=== PATIENT | male | born 1985 | race Caucasian/White ===

== ENCOUNTER 2023-04-23 19:11 | Emergency (ER) | payer OTHER ==
[2023-04-23] MEDS ORDERED: Sodium Chloride 0.9% 10 ML Syringe FLUSH PRN (19:50)
[2023-04-23] MEDS ORDERED: Pantoprazole 40 MG Vial IVPUSH ONE ×2 (20:00→20:15)
[2023-04-23] MEDS ORDERED: Prochlorperazine 10 MG/2 ML SDV IVPUSH ONE (20:03)
[2023-04-23 20:11] LABS: BASOPHILS ABSOLUTE AUTO 0.1 K/mm3 (0.0-0.2); BASOPHILS PERCENT AUTO 0.9 % (0.0-1.0); EOSINOPHILS PERCENT AUTO 0.3 % (0.0-6.0); HEMOGLOBIN 11.7 gm/dl (14.0-18.0); IMMATURE GRAN ABSOLUTE AUTO 0.04 K/mm3 (0.00-0.05); IMMATURE GRAN PERCENT AUTO 0.4 % (0.0-0.4); LYMPHOCYTES ABSOLUTE AUTO 3.7 K/mm3 (1.0-4.8); MEAN CORPUSCULAR HEMOGLOBIN 32.3 pg (28.0-32.0); MEAN CORPUSCULAR HGB CONC 35.5 g/dl (32.0-36.0); MEAN CORPUSCULAR VOLUME 91.2 fl (83.0-99.0); MONOCYTES ABSOLUTE AUTO 0.7 K/mm3 (0.0-0.8); MONOCYTES PERCENT AUTO 6.6 % (0.0-8.0); NEUTROPHILS ABSOLUTE AUTO 6.7 K/mm3 (1.8-7.7); NEUTROPHILS PERCENT AUTO 58.8 % (41.0-71.0); PLATELET COUNT,PLT 119 K/mm3 (150-400); RED BLOOD CELL COUNT 3.62 M/mm3 (4.52-5.90); WHITE BLOOD CELL COUNT,WBC 11.29 K/mm3 (3.9-11.3)
[2023-04-23] MEDS ORDERED: Pantoprazole 80 MG in Sodium Chloride 0.9% 100 ML IV SCH (20:15)
[2023-04-23 20:21] LABS: A/G RATIO 1.2 (1-2); ALBUMIN 3.6 g/dl (3.4-5.0); ANION GAP 22.1 (5-15); BILIRUBIN TOTAL 2.7 mg/dL (0.2-1.0); CALCIUM 8.4 mg/dL (8.5-10.1); EST CRCL DRUG DOSING (CG) 103.82 mL/min; POTASSIUM,K 3.1 mEq/L (3.5-5.1); PROTEIN TOTAL,TP 6.5 g/dl (6.4-8.2)
[2023-04-23] MEDS ORDERED: Octreotide 500 MCG in Normal Saline 500 ML IV SCH (20:30)
[2023-04-23] MEDS ORDERED: Octreotide 100 MCG/ML SDV IVPUSH ONE (20:30)
[2023-04-23 20:37] LABS: INR 1.54
[2023-04-23] MEDS ORDERED: Lactated Ringers 1,000 ML IV ONE (20:50)
[2023-04-23] MEDS ORDERED: cefTRIAXone 1 GM Vial IM ONE (21:10)
[2023-04-23] MEDS ORDERED: Sodium Chloride 0.9% 1,000 ML IV SCH (21:45)
[2023-04-23] MEDS ORDERED: Metoclopramide 10 MG/2 ML SDV IVPUSH ONE (22:18)
[2023-04-23] MEDS ORDERED: Sodium Chloride 0.9% 100 ML ONE (22:21)
== END 2023-04-23 23:31 ==
LOC: JD.ED 19:11
DX: K92.2 Gastrointestinal hemorrhage, unspecified (principal); Z87.19 Personal history of other diseases of the digestive system
CPT/HCPCS: 36415; 80053; 85025; 85610; 86850; 86900; 86901; 93005; 96365; 96366; 96368; 96372; 96375; 96376; 99285; C9113; J0696; J0780; J2354; J2765; J3490; J7040; J7120; 93010; 99284

== ENCOUNTER 2024-01-03 08:03 | Inpatient (IN) | payer BC, MEDICAID, OTHER ==
[2024-01-03] MEDS: Sodium Chloride 0.9% 1,000 ML IV ONE (08:45)
[2024-01-03] MEDS: Sodium Chloride 0.9% 10 ML Syringe FLUSH PRN (08:50)
[2024-01-03] MEDS: LORazepam 2 MG/ML SDV IVPUSH ONE (08:50)
[2024-01-03 09:22] LABS: INR 1.83; PROTHROMBIN TIME 18.6 SECONDS (9.7-12.0)
[2024-01-03 09:24] LABS: PTT,PARTIAL THROMBOPLSTIN TIME 29.2 SECONDS (21.7-31.4)
[2024-01-03 09:27] LABS: LACTIC ACID 0.9 mmol/L (0.4-2.0)
[2024-01-03 09:28] LABS: BASOPHILS ABSOLUTE AUTO 0.1 K/mm3 (0.0-0.2); EOSINOPHILS ABSOLUTE AUTO 0.2 K/mm3 (0.0-0.4); EOSINOPHILS PERCENT AUTO 3.6 % (0.0-6.0); HEMATOCRIT 22.4 % (42.0-52.0); IMMATURE GRAN ABSOLUTE AUTO 0.01 K/mm3 (0.00-0.05); IMMATURE GRAN PERCENT AUTO 0.2 % (0.0-0.4); LYMPHOCYTES ABSOLUTE AUTO 1.1 K/mm3 (1.0-4.8); LYMPHOCYTES PERCENT AUTO 21.4 % (24.0-44.0); MEAN CORPUSCULAR HGB CONC 31.7 g/dl (32.0-36.0); MEAN CORPUSCULAR VOLUME 78.9 fl (83.0-99.0); MONOCYTES ABSOLUTE AUTO 0.5 K/mm3 (0.0-0.8); MONOCYTES PERCENT AUTO 10.9 % (0.0-8.0); NEUTROPHILS ABSOLUTE AUTO 3.1 K/mm3 (1.8-7.7); NEUTROPHILS PERCENT AUTO 62.9 % (41.0-71.0); PLATELET COUNT,PLT 90 K/mm3 (150-400); RED BLOOD CELL COUNT 2.84 M/mm3 (4.52-5.90); WHITE BLOOD CELL COUNT,WBC 4.95 K/mm3 (3.9-11.3)
[2024-01-03 09:32] LABS: HEMOGLOBIN 7.1 gm/dl (14.0-18.0)
[2024-01-03 09:34] LABS: A/G RATIO 0.8 (1-2); ALBUMIN 2.5 g/dl (3.4-5.0); ANION GAP 13.7 (5-15); BILIRUBIN TOTAL 12.3 mg/dL (0.2-1.0); BUN/CREATININE RATIO 6.3 (14-18); CALCIUM 7.5 mg/dL (8.5-10.1); EST CRCL DRUG DOSING (CG) 114.06 mL/min; MAGNESIUM 1.7 mg/dL (1.8-2.4)
[2024-01-03 09:40] LABS: CREATININE 0.8 mg/dL (0.7-1.3); POTASSIUM,K 3.7 mEq/L (3.5-5.1); PROTEIN TOTAL,TP 5.8 g/dl (6.4-8.2)
[2024-01-03 10:10] LABS: SLIDE REVIEW ABNORMAL SMEAR
[2024-01-03] MEDS: Magnesium Sulfate/Water 2 GM in Premix Bag 1 BAG IV ONE (13:25)
[2024-01-03] MEDS: prednisoLONE Soln 15 MG/5 ML UD Cup PO ONE (13:25)
[2024-01-03 15:39] LABS: BILIRUBIN DIRECT 9.1 mg/dl (0.0-0.2)
[2024-01-03] MEDS: Magnesium Sulfate (4 meq/ML) 10 GM/20 ML SDV IV ONE (15:44)
[2024-01-03] MEDS: Potassium Chloride 20 MEQ Tab.ER PO ONE (15:44)
[2024-01-03] MEDS: oxyCODONE 5 MG Tab PO PRN (15:48)
[2024-01-03] MEDS ORDERED: Propranolol 10 MG Tab PO PRN (16:01)
[2024-01-03] MEDS ORDERED: Morphine 2 MG/ML SYRINGE IVPUSH PRN (16:07)
[2024-01-03] MEDS ORDERED: Sennosides/Docusate Sodium 50-8.6 MG Tab PO PRN (16:07)
[2024-01-03] MEDS ORDERED: Lidocaine 4% 1 each Patch TOP PRN (16:07)
[2024-01-03] MEDS ORDERED: Remove Patch LIDODERM TRDERM PRN (16:20)
[2024-01-03] MEDS: Lactulose Soln 10 GM/15 ML 30 ML UD Cup PO SCH (16:46)
[2024-01-03] MEDS: Lactated Ringers 1,000 ML IV SCH (16:46)
[2024-01-03 17:09] LABS: APPEARANCE,URINE CLEAR (Clear); BILIRUBIN,URINE 2+ (Negative); COLOR,URINE DARK YELLOW (Yellow); GLUCOSE,URINE NEGATIVE (Negative); KETONES,URINE NEGATIVE (Negative); LEUKOCYTE ESTERASE,URINE NEGATIVE (Negative); NITRITE,URINE NEGATIVE (Negative); OCCULT BLOOD,URINE NEGATIVE (Negative); PH,URINE 6.5 (5.0-8.0); PROTEIN,URINE NEGATIVE (Negative); UROBILINOGEN,URINE 0.2 (0.2-1.0)
[2024-01-03 17:16] LABS: BARBITURATE SCREEN,URINE NEGATIVE (CUTOFF=200); BENZODIAZEPINES SCREEN,URINE NEGATIVE (CUTOFF=150); BUPRENORPHINE SCREEN,URINE NEGATIVE (CUTOFF=10); METHADONE SCREEN, URINE NEGATIVE (CUT0FF=200); METHAMPHETAMINES SCREEN, URINE NEGATIVE (CUTOFF=500); OXYCODONE SCREEN,URINE NEGATIVE (CUT0FF=100); THC SCREEN,URINE 20 NG/ML NEGATIVE (CUTOFF=50)
[2024-01-03 17:28] LABS: AMPHETAMINES SCREEN, URINE NEGATIVE (CUTOFF=500)
[2024-01-03 17:30] LABS: HEPATITIS C AB NON-REACTIVE (Non-React)
[2024-01-03] MEDS: Sodium Ferric Gluconate Cmplex 125 MG in Sodium Chloride 0.9% 100 ML IV SCH (19:21)
[2024-01-03] MEDS: Propranolol 20 MG Tab PO SCH (20:49)
[2024-01-03] MEDS: Pantoprazole 40 MG Tab.CR PO SCH (20:49)
[2024-01-03] MEDS: LORazepam 2 MG/ML SDV IVPUSH PRN (23:05)
[2024-01-04 05:27] LABS: INR 1.78; PROTHROMBIN TIME 18.2 SECONDS (9.7-12.0)
[2024-01-04 05:39] LABS: A/G RATIO 0.7 (1-2); ALBUMIN 2.3 g/dl (3.4-5.0); BILIRUBIN TOTAL 11.8 mg/dL (0.2-1.0); BUN/CREATININE RATIO 7.1 (14-18); CALCIUM 7.8 mg/dL (8.5-10.1); EST CRCL DRUG DOSING (CG) 138.43 mL/min; PHOSPHORUS 2.5 mg/dL (2.6-4.7)
[2024-01-04 05:40] LABS: PROTEIN TOTAL,TP 5.6 g/dl (6.4-8.2)
[2024-01-04 05:41] LABS: BASOPHILS PERCENT AUTO 0.1 % (0.0-1.0); CREATININE 0.7 mg/dL (0.7-1.3); HEMATOCRIT 22.6 % (42.0-52.0); IMMATURE GRAN ABSOLUTE AUTO 0.04 K/mm3 (0.00-0.05); IMMATURE GRAN PERCENT AUTO 0.5 % (0.0-0.4); LYMPHOCYTES ABSOLUTE AUTO 0.9 K/mm3 (1.0-4.8); MEAN CORPUSCULAR HEMOGLOBIN 25.6 pg (28.0-32.0); MEAN CORPUSCULAR HGB CONC 32.3 g/dl (32.0-36.0); MEAN CORPUSCULAR VOLUME 79.3 fl (83.0-99.0); MONOCYTES ABSOLUTE AUTO 0.4 K/mm3 (0.0-0.8); MONOCYTES PERCENT AUTO 4.7 % (0.0-8.0); NEUTROPHILS ABSOLUTE AUTO 7.2 K/mm3 (1.8-7.7); NEUTROPHILS PERCENT AUTO 84.7 % (41.0-71.0); PLATELET COUNT,PLT 91 K/mm3 (150-400); RED BLOOD CELL COUNT 2.85 M/mm3 (4.52-5.90); WHITE BLOOD CELL COUNT,WBC 8.52 K/mm3 (3.9-11.3)
[2024-01-04 06:32] LABS: HEMOGLOBIN 7.3 gm/dl (14.0-18.0)
[2024-01-04 06:35] LABS: SLIDE REVIEW ABNORMAL SMEAR
[2024-01-04] MEDS: Sodium Ferric Gluconate Cmplex 125 MG in Sodium Chloride 0.9% 100 ML IV SCH (08:00)
[2024-01-04] MEDS: Enoxaparin 40 MG/0.4 ML Syringe SUBCUT SCH (08:00)
[2024-01-04] MEDS ORDERED: Ferrous Sulfate 324 MG Tab.EC PO SCH (09:00)
[2024-01-04] MEDS: Ondansetron 4 MG/2 ML SDV IV PRN (10:23)
[2024-01-04] MEDS: LORazepam 2 MG/ML SDV IVPUSH PRN (12:13)
[2024-01-04] MEDS: Sodium Chloride 0.9% 500 ML ONE (12:42)
[2024-01-04] MEDS: Sodium Chloride 0.9% 500 ML IV ONE (12:43)
[2024-01-04] MEDS: Sodium Chloride 0.9% 1,000 ML IV SCH (15:12)
[2024-01-04] MEDS: Ibuprofen 400 MG Tab PO PRN (20:42)
[2024-01-04] MEDS: Melatonin 3 MG Tab PO PRN (20:42)
[2024-01-04] MEDS: Atropine 0.1 MG/ML 10 ML Syringe IVPUSH ONE (20:45)
[2024-01-04] MEDS: Pantoprazole 40 MG Vial IVPUSH SCH (21:06)
[2024-01-05 05:37] LABS: HEMATOCRIT 21.7 % (42.0-52.0); MEAN CORPUSCULAR HEMOGLOBIN 25.5 pg (28.0-32.0); MEAN CORPUSCULAR HGB CONC 31.3 g/dl (32.0-36.0); MEAN CORPUSCULAR VOLUME 81.3 fl (83.0-99.0); PLATELET COUNT,PLT 73 K/mm3 (150-400); RED BLOOD CELL COUNT 2.67 M/mm3 (4.52-5.90); WHITE BLOOD CELL COUNT,WBC 4.23 K/mm3 (3.9-11.3)
[2024-01-05 05:40] LABS: HEMOGLOBIN 6.8 gm/dl (14.0-18.0)
[2024-01-05 05:46] LABS: A/G RATIO 0.7 (1-2); ALBUMIN 1.9 g/dl (3.4-5.0); ANION GAP 14.6 (5-15); BILIRUBIN TOTAL 8.9 mg/dL (0.2-1.0); BUN/CREATININE RATIO 4.4 (14-18); CALCIUM 7.2 mg/dL (8.5-10.1); CREATININE 0.9 mg/dL (0.7-1.3); EST CRCL DRUG DOSING (CG) 103.45 mL/min; MAGNESIUM 1.8 mg/dL (1.8-2.4); PHOSPHORUS 3.5 mg/dL (2.6-4.7); POTASSIUM,K 3.6 mEq/L (3.5-5.1); TSH 2.13 uIU/mL (0.358-3.74)
[2024-01-05 05:52] LABS: PROTEIN TOTAL,TP 4.8 g/dl (6.4-8.2)
[2024-01-05] MEDS: Magnesium Sulfate/Water 2 GM in Premix Bag 1 BAG IV ONE (06:51)
[2024-01-05] MEDS: Potassium Chloride 20 MEQ Tab.ER PO ONE (06:51)
[2024-01-05] MEDS ORDERED: Magnesium Sulfate (4.06 MEQ/ML) 5 GM/10 ML SDV IV ONE (07:30)
[2024-01-05] MEDS: LORazepam 2 MG/ML SDV IVPUSH PRN (10:22)
[2024-01-05] MEDS: Magnesium Sulfate/Water 4 GM in Premix Bag 1 BAG IV ONE (13:50)
[2024-01-05] MEDS: Folic Acid 1 MG Tab PO SCH (13:54)
[2024-01-05] MEDS: Cyanocobalamin (Vitamin B12) 1,000 MCG Tab PO SCH (13:54)
[2024-01-05] MEDS: Pantoprazole 40 MG Tab.CR PO SCH (15:33)
[2024-01-05 17:02] LABS: HEMATOCRIT 25.8 % (42.0-52.0); HEMOGLOBIN 8.1 gm/dl (14.0-18.0); MEAN CORPUSCULAR HEMOGLOBIN 25.5 pg (28.0-32.0); MEAN CORPUSCULAR HGB CONC 31.4 g/dl (32.0-36.0); MEAN CORPUSCULAR VOLUME 81.1 fl (83.0-99.0); PLATELET COUNT,PLT 82 K/mm3 (150-400); RED BLOOD CELL COUNT 3.18 M/mm3 (4.52-5.90); WHITE BLOOD CELL COUNT,WBC 5.08 K/mm3 (3.9-11.3)
[2024-01-05] MEDS: Thiamine 100 MG Tab PO SCH (20:57)
[2024-01-06 05:38] LABS: HEMATOCRIT 24.2 % (42.0-52.0); HEMOGLOBIN 7.8 gm/dl (14.0-18.0); MEAN CORPUSCULAR HEMOGLOBIN 25.7 pg (28.0-32.0); MEAN CORPUSCULAR HGB CONC 32.2 g/dl (32.0-36.0); MEAN CORPUSCULAR VOLUME 79.6 fl (83.0-99.0); NRBC ABSOLUTE 0.02 (0.00-0.02); NRBC PERCENT 0.4 % (0.0-0.2); PLATELET COUNT,PLT 80 K/mm3 (150-400); RED BLOOD CELL COUNT 3.04 M/mm3 (4.52-5.90); WHITE BLOOD CELL COUNT,WBC 4.72 K/mm3 (3.9-11.3)
[2024-01-06 05:44] LABS: A/G RATIO 0.7 (1-2); ALBUMIN 2.1 g/dl (3.4-5.0); ANION GAP 14.8 (5-15); BUN/CREATININE RATIO 6.3 (14-18); CALCIUM 7.5 mg/dL (8.5-10.1); EST CRCL DRUG DOSING (CG) 121.13 mL/min; MAGNESIUM 1.9 mg/dL (1.8-2.4)
[2024-01-06 06:14] LABS: CREATININE 0.8 mg/dL (0.7-1.3); POTASSIUM,K 3.8 mEq/L (3.5-5.1)
[2024-01-06 14:42] LABS: CMV QNT BY NAAT, INTERP,PL Not Detected (Not Detected); CMV QNT BY NAAT, IU/ML,PL Not Detected; CMV QNT BY NAAT, LOGIU/ML,PL Not Detected log IU/mL
[2024-01-06] MEDS ORDERED: LORazepam 2 MG/ML SDV IVPUSH PRN (16:55)
[2024-01-06] MEDS: Magnesium Sulfate/Water 2 GM in Premix Bag 1 BAG IV ONE (21:32)
[2024-01-06 22:41] LABS: MITOCHONDRIAL AB 3.9 Units (0.0-24.9)
[2024-01-07] MEDS: Potassium Chloride 20 MEQ Tab.ER PO ONE ×2 (02:05→02:06)
[2024-01-07 05:31] LABS: HEMATOCRIT 25.1 % (42.0-52.0); HEMOGLOBIN 8.1 gm/dl (14.0-18.0); MEAN CORPUSCULAR HEMOGLOBIN 26.2 pg (28.0-32.0); MEAN CORPUSCULAR HGB CONC 32.3 g/dl (32.0-36.0); MEAN CORPUSCULAR VOLUME 81.2 fl (83.0-99.0); NRBC ABSOLUTE 0.02 (0.00-0.02); NRBC PERCENT 0.4 % (0.0-0.2); PLATELET COUNT,PLT 90 K/mm3 (150-400); RED BLOOD CELL COUNT 3.09 M/mm3 (4.52-5.90); WHITE BLOOD CELL COUNT,WBC 5.39 K/mm3 (3.9-11.3)
[2024-01-07 05:44] LABS: A/G RATIO 0.7 (1-2); ALBUMIN 2.1 g/dl (3.4-5.0); BUN/CREATININE RATIO 6.7 (14-18); EST CRCL DRUG DOSING (CG) 107.67 mL/min; MAGNESIUM 1.8 mg/dL (1.8-2.4); PHOSPHORUS 3.5 mg/dL (2.6-4.7)
[2024-01-07 05:49] LABS: CREATININE 0.9 mg/dL (0.7-1.3)
[2024-01-07 14:43] LABS: EBV QNT BY NAAT,INTERP,PLASMA Not Detected (Not Detected); EBV QNT BY NAAT,IU/ML,PLASMA Not Detected; EBV QNT BY NAAT,LOG,IU/ML,PLAS Not Detected log IU/mL
== END 2024-01-07 14:30 | disposition home or self-care (01) | DRG 442 ==
LOC: JD.ED 08:03 → JD.MS 09:59 → JD.ICU 01-04 09:54 → EDBD 01-04 09:59 → OBSVTOIN 01-04 09:59 → JD.MS 01-07 12:10 → JD.ICU 01-07 12:11
PROVIDERS: ADMIT Student in an Organized Health Care Education/Training Program; ATTEND Student in an Organized Health Care Education/Training Program
DX: K72.00 Acute and subacute hepatic failure without coma (principal); F10.139 Alcohol abuse with withdrawal, unspecified; S22.41XA Multiple fractures of ribs, right side, initial encounter for closed fracture; D50.9 Iron deficiency anemia, unspecified; F41.9 Anxiety disorder, unspecified; K72.10 Chronic hepatic failure without coma; F17.210 Nicotine dependence, cigarettes, uncomplicated; E80.6 Other disorders of bilirubin metabolism; K76.0 Fatty (change of) liver, not elsewhere classified; K80.20 Calculus of gallbladder without cholecystitis without obstruction; K22.70 Barrett's esophagus without dysplasia; X58.XXXA Exposure to other specified factors, initial encounter; Y92.89 Other specified places as the place of occurrence of the external cause
CPT/HCPCS: 36415; 36430; 51798; 71101-26-RT; 71101-RT; 76705; 76705-26; 80053; 80306; 80307; 81003; 82140; 82248; 82272; 83540; 83605; 83690; 83735; 84100; 84443; 84466; 85025; 85027; 85610; 85730; 86381; 86803; 86850; 86900; 86901; 86922; 87497; 87799; 93005; 94760; 96361; 96365; 96366; 96367; 96372; 96375; 96376; 99285-25; A9270-GY; C1758; G0378; J1650; J2060; J2405; J2470; J2916; J3360; J3475; J3490; J7030; J7040; J7120; P9016

== ENCOUNTER 2024-03-05 12:45 | Emergency (ER) | payer MEDICAID ==
[2024-03-05] MEDS: Sodium Chloride 0.9% 1,000 ML IV ONE (13:08)
[2024-03-05] MEDS: Metoclopramide 10 MG/2 ML SDV IVPUSH ONE (13:08)
[2024-03-05 13:31] LABS: BASOPHILS PERCENT AUTO 0.7 % (0.0-1.0); EOSINOPHILS PERCENT AUTO 0.7 % (0.0-6.0); HEMATOCRIT 33.2 % (42.0-52.0); HEMOGLOBIN 11.3 gm/dl (14.0-18.0); IMMATURE GRAN ABSOLUTE AUTO 0.03 K/mm3 (0.00-0.05); IMMATURE GRAN PERCENT AUTO 0.5 % (0.0-0.4); LYMPHOCYTES ABSOLUTE AUTO 1.3 K/mm3 (1.0-4.8); LYMPHOCYTES PERCENT AUTO 22.9 % (24.0-44.0); MEAN CORPUSCULAR HEMOGLOBIN 30.6 pg (28.0-32.0); MONOCYTES ABSOLUTE AUTO 0.6 K/mm3 (0.0-0.8); MONOCYTES PERCENT AUTO 9.8 % (0.0-8.0); NEUTROPHILS ABSOLUTE AUTO 3.7 K/mm3 (1.8-7.7); NEUTROPHILS PERCENT AUTO 65.4 % (41.0-71.0); PLATELET COUNT,PLT 71 K/mm3 (150-400); RED BLOOD CELL COUNT 3.69 M/mm3 (4.52-5.90); WHITE BLOOD CELL COUNT,WBC 5.59 K/mm3 (3.9-11.3)
[2024-03-05] MEDS: Pantoprazole 40 MG Vial IVPUSH ONE (13:38)
[2024-03-05 14:03] LABS: A/G RATIO 0.8 (1-2); ALBUMIN 2.6 g/dl (3.4-5.0); ANION GAP 18.6 (5-15); C-REACTIVE PROTEIN 0.85 mg/dL (<0.30); EST CRCL DRUG DOSING (CG) 102.81 mL/min
[2024-03-05 14:08] LABS: POTASSIUM,K 2.6 mEq/L (3.5-5.1); PROTEIN TOTAL,TP 5.9 g/dl (6.4-8.2)
[2024-03-05 14:09] LABS: SLIDE REVIEW ABNORMAL SMEAR
[2024-03-05 14:14] LABS: INR 1.46; PROTHROMBIN TIME 15.1 SECONDS (9.7-12.0)
[2024-03-05] MEDS: Potassium Chloride 10 MEQ in Premix Bag 1 BAG IV SCH (15:43)
[2024-03-05] MEDS: Sodium Chloride 0.9% 1,000 ML IV SCH (15:46)
== END 2024-03-05 17:00 ==
LOC: JD.ED 12:45
DX: K92.0 Hematemesis (principal); Z79.899 Other long term (current) drug therapy; Z86.16 Personal history of COVID-19
CPT/HCPCS: 36415; 80053; 80307; 83690; 85025; 85610; 86140; 96361; 96365; 96375; 99285; J2470; J2765; J3480; J7030